=== PATIENT | female | born 1990 | race Hispanic/Latino ===

== ENCOUNTER 2016-12-20 20:47 | Inpatient (IN) | payer MEDICAID ==
[2016-12-20] MEDS ORDERED: CERVIDIL VG ONE (21:57)
[2016-12-20] MEDS ORDERED: BRETHINE IVP PRN (21:57)
[2016-12-20] MEDS ORDERED: NARCAN 0.4 MG/1 ML IV PRN (21:57)
[2016-12-20] MEDS ORDERED: MINERAL OIL PO PRN (21:57)
[2016-12-20] MEDS ORDERED: STADOL IV PRN (21:57)
[2016-12-20] MEDS ORDERED: XYLOCAINE 2% INFILTRATI ONE (21:57)
[2016-12-20] MEDS ORDERED: ePHEDrine SULFATE IV PRN (21:57)
[2016-12-20] MEDS ORDERED: PHENERGAN PO PRN (21:57)
[2016-12-20] MEDS ORDERED: ZOFRAN IV PRN (21:57)
[2016-12-20] MEDS ORDERED: BRETHINE SUB-Q PRN (21:57)
[2016-12-20] MEDS ORDERED: PITOCin/NS 20 UNIT/1000ML DRIP 20 UNITS/1,000 ML BAG IV SCH (22:00)
--- NOTE | 2016-12-20 22:11 | History and Physical Report ---
History of Present Illness Date of examination: 12/20/16 Date of admission: 12/20/16 20:47 Chief complaint: Induction of labor for postdates History of present illness: 26 yo at 41 wk + 2d by established EDC of 12/11/2016. EFW was 8#2oz 3693 gm on 12/13/2016. Known GBS neg, MBT: A pos, Rubella Immune, last Hct was 31. Admitted for cervical ripening and then induction of labor. 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, chlamydia, gonorrhea Social history: no significant social history - Obstetrical History Expected Date of Delivery: 12/11/16 Actual Gestation: 41 Week(s) 2 Day(s) : 3 Para: 0 Spontaneous Abortions: 2 Medications and Allergies Allergies Allergy/AdvReac Type Severity Reaction Status Date / Time No Known Allergies Allergy Unverified 11/26/16 17:28 Active Meds: Active Medications Butorphanol Tartrate (Stadol) 2 mg IV Q2H PRN PRN Reason: Pain , Severe (7-10) Dinoprostone (Cervidil) 10 mg VG ONCE ONE Stop: 12/20/16 21:58 Ephedrine Sulfate (Ephedrine Sulfate) 10 mg IV Q2M PRN PRN Reason: Hypotension Stop: 12/20/16 22:02 Lactated Ringer's (Lactated Ringers) 1,000 mls @ 125 mls/hr IV DIRECT JUSTICE Oxytocin/Sodium Chloride (Pitocin/Ns 20 Unit/1000ml Drip) 20 units in 1,000 mls @ 125 mls/hr IV DIRECT JUSTICE Lidocaine (Xylocaine 2%) 20 ml INFILTRATI ONCE ONE Stop: 12/20/16 21:58 Mineral Oil (Mineral Oil) 30 ml PO QHS PRN PRN Reason: Constipation Naloxone HCl (Narcan 0.4 Mg/1 Ml) 0.1 mg IV Q2MIN PRN PRN Reason: Res Rate </= 8 or 02 SAT < 92% Ondansetron HCl (Zofran) 4 mg IV Q8H PRN PRN Reason: Nausea And Vomiting Promethazine HCl (Phenergan) 25 mg PO Q6H PRN PRN Reason: Nausea And Vomiting Terbutaline Sulfate (Brethine) 0.25 mg SUB-Q ONCE PRN PRN Reason: Hyperstimulation/Hypertonicity Stop: 12/20/16 21:58 Terbutaline Sulfate (Brethine) 0.25 mg IVP ONCE PRN PRN Reason: Hyperstimulation/Hypertonicity Stop: 12/20/16 21:58 Review of Systems All systems: negative - Vital Signs Vital signs: Vital Signs Pulse Pulse Ox 50 L 94 12/20/16 21:28 12/20/16 21:28 Temp Pulse Resp BP Pulse Ox 98.7 F 75 18 124/76 97 12/20/16 21:40 12/20/16 22:03 12/20/16 21:40 12/20/16 21:42 12/20/16 22:03 - Physical Exam Breasts: Positive: normal Cardiovascular: Regular rate Lungs: Positive: Clear to auscultation Abdomen: Positive: normal appearance, soft Genitourinary (Female): Positive: normal external genitalia, normal perenium Vulva: both: normal Vagina: Positive: normal moisture Cervix: Negative: lesion Uterus: Positive: enlarged Adnexa: both: normal Anus/Rectum: Positive: normal perianal skin Extremities: Positive: normal Deep Tendon Reflex Grade: Normal +2 - Obstetrical FHR: auscultation normal Cervical Dilatation: 1 Cervical Effacement Percentage: 50 station: -2 Uterine Contraction Frequency (min): 0 Uterine Contraction Pattern: Absent Results All other labs normal. Assessment and Plan - Patient Problems (1) Post-dates Onset Date: ~12/20/16 Current Visit: Yes Status: Acute Qualifiers: Post-term type: 40-42 weeks gestation Qualified Code(s): O48.0 - Post-term Plan to address problem: Induction of labor after cervical ripening
[2016-12-20 22:40] LABS: Hematocrit 30.1 % (30.3-42.9); Mean Corpuscular HGB Conc 33 % (30-34); Mean Corpuscular Hemoglobin 29 pg (28-32); Mean Corpuscular Volume 87 fl (79-97); Platelet Count 227 K/mm3 (140-440); Red Blood Count 3.45 M/mm3 (3.65-5.03); Red Cell Distribution Width 13.1 % (13.2-15.2); White Blood Count 12.5 K/mm3 (4.5-11.0)
[2016-12-20] MEDS: LACTATED RINGERS 1,000 ML IV SCH (23:04)
[2016-12-20] MEDS ORDERED: AMBIEN PO PRN (23:21)
[2016-12-21] MEDS: LACTATED RINGERS 1,000 ML IV SCH (05:26)
[2016-12-21] MEDS ORDERED: ePHEDrine SULFATE ONE (05:28)
--- NOTE | 2016-12-21 06:12 | Anesthesia Consultation ---
Anesthesia Consult and Med Hx Date of service: 12/21/16 - Airway Anesthetic Teeth Evaluation: Good ROM Head & Neck: Adequate Mental/Hyoid Distance: Adequate Mallampati Class: Class II Intubation Access Assessment: Probably Good - Pulmonary Exam CTA: Yes - Cardiac Exam Cardiac Exam: RRR - Pre-Operative Health Status ASA Pre-Surgery Classification: ASA2 Proposed Anesthetic Plan: Epidural, Spinal - Pulmonary Hx Asthma: No COPD: No Hx Pneumonia: No - Cardiovascular System Hx Hypertension: No - Central Nervous System Hx Seizures: No Hx Psychiatric Problems: No - Endocrine Hx Renal Disease: No Hx End Stage Renal Disease: No Hx Hypothyroidism: No Hx Hyperthyroidism: No - Hematic Hx Anemia: No Hx Sickle Cell Disease: No - Other Systems Hx Alcohol Use: No Hx Obesity: Yes - Additional Comments Anesthesia Medical History Comments: +
[2016-12-21] MEDS ORDERED: ePHEDrine SULFATE IV PRN (06:13)
--- NOTE | 2016-12-21 06:49 | Progress Note ---
<MONIKA DANIELSON - Last Filed: 12/21/16 06:45> Assessment and Plan Called urgently to see pt due to prolong decel and rapid dilatation. On my arrival pt is s/p epidural and very comfortable. SVE 9,100,0 SROM clear fluid, ISE applied. FHR flat, early decels, 120-130. Pt had been given Stadol just prior to epidural and was given Ephedrine after epidural, for hypotension O2 via face mask. Dr Alvarez aware and enroute. Subjective - Subjective Date of service: 12/21/16 (comfortable w/epidural) Patient reports: movement normal Objective - Vital Signs Vital Signs: Vital Signs - 12hr 12/20/16 12/20/16 12/20/16 21:28 21:33 21:38 Temperature Pulse Rate 69 79 72 Pulse Rate [ Left From Monitor] Respiratory Rate Blood Pressure Blood Pressure [Left Arm] O2 Sat by Pulse 95 96 97 Oximetry 12/20/16 12/20/16 12/20/16 21:40 21:42 21:43 Temperature 98.7 F Pulse Rate 70 81 Pulse Rate [ 79 Left From Monitor] Respiratory 18 Rate Blood Pressure 124/76 Blood Pressure 124/76 [Left Arm] O2 Sat by Pulse 95 97 Oximetry 12/20/16 12/20/16 12/20/16 21:48 21:53 21:58 Temperature Pulse Rate 71 75 76 Pulse Rate [ Left From Monitor] Respiratory Rate Blood Pressure Blood Pressure [Left Arm] O2 Sat by Pulse 98 98 97 Oximetry 12/20/16 12/20/16 12/20/16 22:03 22:08 22:13 Temperature Pulse Rate 75 73 77 Pulse Rate [ Left From Monitor] Respiratory Rate Blood Pressure Blood Pressure [Left Arm] O2 Sat by Pulse 97 96 95 Oximetry 12/20/16 12/20/16 12/20/16 22:18 22:23 22:28 Temperature Pulse Rate 77 66 75 Pulse Rate [ Left From Monitor] Respiratory Rate Blood Pressure Blood Pressure [Left Arm] O2 Sat by Pulse 98 97 97 Oximetry 12/20/16 12/20/16 12/20/16 22:33 22:38 22:43 Temperature Pulse Rate 74 69 73 Pulse Rate [ Left From Monitor] Respiratory Rate Blood Pressure Blood Pressure [Left Arm] O2 Sat by Pulse 96 97 97 Oximetry 12/20/16 12/20/16 12/20/16 22:54 22:56 22:59 Temperature Pulse Rate 68 65 62 Pulse Rate [ Left From Monitor] Respiratory Rate Blood Pressure 152/78 Blood Pressure [Left Arm] O2 Sat by Pulse 96 97 Oximetry 12/20/16 12/20/16 12/20/16 23:04 23:09 23:24 Temperature Pulse Rate 66 82 69 Pulse Rate [ Left From Monitor] Respiratory Rate Blood Pressure Blood Pressure [Left Arm] O2 Sat by Pulse 97 97 95 Oximetry 12/20/16 12/20/16 12/20/16 23:25 23:29 23:34 Temperature Pulse Rate 68 65 73 Pulse Rate [ Left From Monitor] Respiratory Rate Blood Pressure 139/66 Blood Pressure [Left Arm] O2 Sat by Pulse 97 98 Oximetry 12/20/16 12/20/16 12/21/16 23:39 23:44 01:46 Temperature Pulse Rate 82 61 Pulse Rate [ Left From Monitor] Respiratory 18 Rate Blood Pressure Blood Pressure [Left Arm] O2 Sat by Pulse 98 98 Oximetry 12/21/16 12/21/16 12/21/16 02:46 02:51 02:56 Temperature Pulse Rate 90 73 74 Pulse Rate [ Left From Monitor] Respiratory Rate Blood Pressure Blood Pressure [Left Arm] O2 Sat by Pulse 94 93 93 Oximetry 12/21/16 12/21/16 12/21/16 03:00 03:01 03:06 Temperature Pulse Rate 99 H 97 H 106 H Pulse Rate [ Left From Monitor] Respiratory Rate Blood Pressure Blood Pressure [Left Arm] O2 Sat by Pulse 94 93 95 Oximetry 12/21/16 12/21/16 12/21/16 03:07 03:11 03:14 Temperature Pulse Rate 101 H 70 83 Pulse Rate [ Left From Monitor] Respiratory Rate Blood Pressure Blood Pressure [Left Arm] O2 Sat by Pulse 94 94 93 Oximetry 12/21/16 12/21/16 12/21/16 03:16 03:19 03:21 Temperature Pulse Rate 66 83 75 Pulse Rate [ Left From Monitor] Respiratory Rate Blood Pressure Blood Pressure [Left Arm] O2 Sat by Pulse 93 94 93 Oximetry 12/21/16 12/21/16 12/21/16 03:26 03:31 05:10 Temperature Pulse Rate 69 102 H 53 L Pulse Rate [ Left From Monitor] Respiratory Rate Blood Pressure Blood Pressure [Left Arm] O2 Sat by Pulse 96 97 95 Oximetry 12/21/16 12/21/16 12/21/16 05:11 05:15 05:16 Temperature Pulse Rate 57 L 78 68 Pulse Rate [ Left From Monitor] Respiratory Rate Blood Pressure Blood Pressure [Left Arm] O2 Sat by Pulse 94 98 94 Oximetry 12/21/16 12/21/16 12/21/16 05:45 05:50 05:51 Temperature Pulse Rate 96 H 68 63 Pulse Rate [ Left From Monitor] Respiratory Rate Blood Pressure 132/70 124/63 Blood Pressure [Left Arm] O2 Sat by Pulse 98 98 Oximetry 12/21/16 12/21/16 12/21/16 05:52 05:55 05:57 Temperature Pulse Rate 82 81 61 Pulse Rate [ Left From Monitor] Respiratory Rate Blood Pressure 124/64 135/63 119/64 Blood Pressure [Left Arm] O2 Sat by Pulse 96 Oximetry 12/21/16 12/21/16 12/21/16 05:59 06:00 06:01 Temperature Pulse Rate 60 68 71 Pulse Rate [ Left From Monitor] Respiratory Rate Blood Pressure 125/68 112/54 Blood Pressure [Left Arm] O2 Sat by Pulse 96 Oximetry 12/21/16 12/21/16 12/21/16 06:05 06:06 06:07 Temperature Pulse Rate 85 69 66 Pulse Rate [ Left From Monitor] Respiratory Rate Blood Pressure 104/50 Blood Pressure [Left Arm] O2 Sat by Pulse 98 90 Oximetry 12/21/16 12/21/16 12/21/16 06:09 06:10 06:11 Temperature Pulse Rate 67 67 65 Pulse Rate [ Left From Monitor] Respiratory Rate Blood Pressure 101/53 89/52 Blood Pressure [Left Arm] O2 Sat by Pulse 98 Oximetry 12/21/16 12/21/16 12/21/16 06:12 06:15 06:17 Temperature Pulse Rate 85 69 71 Pulse Rate [ Left From Monitor] Respiratory Rate Blood Pressure 98/54 104/53 95/53 Blood Pressure [Left Arm] O2 Sat by Pulse 94 Oximetry 12/21/16 12/21/16 12/21/16 06:20 06:21 06:22 Temperature Pulse Rate 68 72 71 Pulse Rate [ Left From Monitor] Respiratory Rate Blood Pressure 118/57 113/55 Blood Pressure [Left Arm] O2 Sat by Pulse 100 Oximetry 12/21/16 12/21/16 12/21/16 06:24 06:25 06:26 Temperature Pulse Rate 82 82 86 Pulse Rate [ Left From Monitor] Respiratory Rate Blood Pressure 116/58 112/55 Blood Pressure [Left Arm] O2 Sat by Pulse 98 Oximetry 12/21/16 12/21/16 12/21/16 06:30 06:35 06:37 Temperature Pulse Rate 94 H 78 75 Pulse Rate [ Left From Monitor] Respiratory Rate Blood Pressure 114/58 Blood Pressure [Left Arm] O2 Sat by Pulse 100 100 Oximetry 12/21/16 06:40 Temperature Pulse Rate 75 Pulse Rate [ Left From Monitor] Respiratory Rate Blood Pressure Blood Pressure [Left Arm] O2 Sat by Pulse 100 Oximetry - Exam Breasts: deferred Cardiovascular: Regular rate Lungs: Normal air movement Abdomen: Present: normal appearance, soft. Absent: distention, tenderness Vulva: both: normal Uterus: Present: normal FHR: auscultation normal Uterine Contraction Monitor Mode: External Cervical Dilatation: 9 Cervical Effacement Percentage: 100 station: 0 Uterine Contraction Pattern: Irregular Uterine Contraction Intensity: Moderate Extremities: edema Deep Tendon Reflex Grade: Normal +2 - Labs Labs: Abnormal Labs 12/20/16 22:20 WBC 12.5 H RBC 3.45 L Hgb 10.0 L Hct 30.1 L RDW 13.1 L Laboratory Results - last 24 hr 12/20/16 12/20/16 22:20 22:20 WBC 12.5 H RBC 3.45 L Hgb 10.0 L Hct 30.1 L MCV 87 MCH 29 MCHC 33 RDW 13.1 L Plt Count 227 Blood Type A POSITIVE Antibody Screen Negative <KEYONNA ALVAREZ - Last Filed: 12/21/16 07:21> Assessment and Plan - Patient Problems (1) Post-dates Onset Date: ~12/20/16 Current Visit: Yes Status: Acute Qualifiers: Post-term type: 40-42 weeks gestation Qualified Code(s): O48.0 - Post-term Subjective - Subjective Principal diagnosis: post dates , induction of labor Interval history: Tracing currently very flat due to, I think, previous hypotensive episode and Ambien/Stadol prior to epidural. Has recently made rapid progress after only cervidil. One recent shallow deceleration after a contraction. Will watch closely--sign off given to Dr Guy. Exam by Ms Smith shows 9 cm with contraction and 7 cm without contraction. Objective - Vital Signs Vital Signs: Vital Signs - 12hr 12/20/16 12/20/16 12/20/16 21:28 21:33 21:38 Temperature Pulse Rate 69 79 72 Pulse Rate [ Left From Monitor] Respiratory Rate Blood Pressure Blood Pressure [Left Arm] O2 Sat by Pulse 95 96 97 Oximetry 12/20/16 12/20/16 12/20/16 21:40 21:42 21:43 Temperature 98.7 F Pulse Rate 70 81 Pulse Rate [ 79 Left From Monitor] Respiratory 18 Rate Blood Pressure 124/76 Blood Pressure 124/76 [Left Arm] O2 Sat by Pulse 95 97 Oximetry 12/20/16 12/20/16 12/20/16 21:48 21:53 21:58 Temperature Pulse Rate 71 75 76 Pulse Rate [ Left From Monitor] Respiratory Rate Blood Pressure Blood Pressure [Left Arm] O2 Sat by Pulse 98 98 97 Oximetry 12/20/16 12/20/16 12/20/16 22:03 22:08 22:13 Temperature Pulse Rate 75 73 77 Pulse Rate [ Left From Monitor] Respiratory Rate Blood Pressure Blood Pressure [Left Arm] O2 Sat by Pulse 97 96 95 Oximetry 12/20/16 12/20/16 12/20/16 22:18 22:23 22:28 Temperature Pulse Rate 77 66 75 Pulse Rate [ Left From Monitor] Respiratory Rate Blood Pressure Blood Pressure [Left Arm] O2 Sat by Pulse 98 97 97 Oximetry 12/20/16 12/20/16 12/20/16 22:33 22:38 22:43 Temperature Pulse Rate 74 69 73 Pulse Rate [ Left From Monitor] Respiratory Rate Blood Pressure Blood Pressure [Left Arm] O2 Sat by Pulse 96 97 97 Oximetry 12/20/16 12/20/16 12/20/16 22:54 22:56 22:59 Temperature Pulse Rate 68 65 62 Pulse Rate [ Left From Monitor] Respiratory Rate Blood Pressure 152/78 Blood Pressure [Left Arm] O2 Sat by Pulse 96 97 Oximetry 12/20/16 12/20/16 12/20/16 23:04 23:09 23:24 Temperature Pulse Rate 66 82 69 Pulse Rate [ Left From Monitor] Respiratory Rate Blood Pressure Blood Pressure [Left Arm] O2 Sat by Pulse 97 97 95 Oximetry 03/13/17 03/13/17 03/13/17 23:25 23:29 23:34 Temperature Pulse Rate 68 65 73 Pulse Rate [ Left From Monitor] Respiratory Rate Blood Pressure 139/66 Blood Pressure [Left Arm] O2 Sat by Pulse 97 98 Oximetry 12/20/16 12/20/16 12/21/16 23:39 23:44 01:46 Temperature Pulse Rate 82 61 Pulse Rate [ Left From Monitor] Respiratory 18 Rate Blood Pressure Blood Pressure [Left Arm] O2 Sat by Pulse 98 98 Oximetry 12/21/16 12/21/16 12/21/16 02:46 02:51 02:56 Temperature Pulse Rate 90 73 74 Pulse Rate [ Left From Monitor] Respiratory Rate Blood Pressure Blood Pressure [Left Arm] O2 Sat by Pulse 94 93 93 Oximetry 12/21/16 12/21/16 12/21/16 03:00 03:01 03:06 Temperature Pulse Rate 99 H 97 H 106 H Pulse Rate [ Left From Monitor] Respiratory Rate Blood Pressure Blood Pressure [Left Arm] O2 Sat by Pulse 94 93 95 Oximetry 12/21/16 12/21/16 12/21/16 03:07 03:11 03:14 Temperature Pulse Rate 101 H 70 83 Pulse Rate [ Left From Monitor] Respiratory Rate Blood Pressure Blood Pressure [Left Arm] O2 Sat by Pulse 94 94 93 Oximetry 12/21/16 12/21/16 12/21/16 03:16 03:19 03:21 Temperature Pulse Rate 66 83 75 Pulse Rate [ Left From Monitor] Respiratory Rate Blood Pressure Blood Pressure [Left Arm] O2 Sat by Pulse 93 94 93 Oximetry 12/21/16 12/21/16 12/21/16 03:26 03:31 05:10 Temperature Pulse Rate 69 102 H 53 L Pulse Rate [ Left From Monitor] Respiratory Rate Blood Pressure Blood Pressure [Left Arm] O2 Sat by Pulse 96 97 95 Oximetry 12/21/16 12/21/16 12/21/16 05:11 05:15 05:16 Temperature Pulse Rate 57 L 78 68 Pulse Rate [ Left From Monitor] Respiratory Rate Blood Pressure Blood Pressure [Left Arm] O2 Sat by Pulse 94 98 94 Oximetry 12/21/16 12/21/16 12/21/16 05:45 05:50 05:51 Temperature Pulse Rate 96 H 68 63 Pulse Rate [ Left From Monitor] Respiratory Rate Blood Pressure 132/70 124/63 Blood Pressure [Left Arm] O2 Sat by Pulse 98 98 Oximetry 12/21/16 12/21/16 12/21/16 05:52 05:55 05:57 Temperature Pulse Rate 82 81 61 Pulse Rate [ Left From Monitor] Respiratory Rate Blood Pressure 124/64 135/63 119/64 Blood Pressure [Left Arm] O2 Sat by Pulse 96 Oximetry 12/21/16 12/21/16 12/21/16 05:59 06:00 06:01 Temperature Pulse Rate 60 68 71 Pulse Rate [ Left From Monitor] Respiratory Rate Blood Pressure 125/68 112/54 Blood Pressure [Left Arm] O2 Sat by Pulse 96 Oximetry 12/21/16 12/21/16 12/21/16 06:05 06:06 06:07 Temperature Pulse Rate 85 69 66 Pulse Rate [ Left From Monitor] Respiratory Rate Blood Pressure 104/50 Blood Pressure [Left Arm] O2 Sat by Pulse 98 90 Oximetry 12/21/16 12/21/16 12/21/16 06:09 06:10 06:11 Temperature Pulse Rate 67 67 65 Pulse Rate [ Left From Monitor] Respiratory Rate Blood Pressure 101/53 89/52 Blood Pressure [Left Arm] O2 Sat by Pulse 98 Oximetry 12/21/16 12/21/16 12/21/16 06:12 06:15 06:17 Temperature Pulse Rate 85 69 71 Pulse Rate [ Left From Monitor] Respiratory Rate Blood Pressure 98/54 104/53 95/53 Blood Pressure [Left Arm] O2 Sat by Pulse 94 Oximetry 12/21/16 12/21/16 12/21/16 06:20 06:21 06:22 Temperature Pulse Rate 68 72 71 Pulse Rate [ Left From Monitor] Respiratory Rate Blood Pressure 118/57 113/55 Blood Pressure [Left Arm] O2 Sat by Pulse 100 Oximetry 12/21/16 12/21/16 12/21/16 06:24 06:25 06:26 Temperature Pulse Rate 82 82 86 Pulse Rate [ Left From Monitor] Respiratory Rate Blood Pressure 116/58 112/55 Blood Pressure [Left Arm] O2 Sat by Pulse 98 Oximetry 12/21/16 12/21/16 12/21/16 06:30 06:35 06:37 Temperature Pulse Rate 94 H 78 75 Pulse Rate [ Left From Monitor] Respiratory Rate Blood Pressure 114/58 Blood Pressure [Left Arm] O2 Sat by Pulse 100 100 Oximetry 12/21/16 12/21/16 12/21/16 06:40 06:45 06:50 Temperature Pulse Rate 75 74 82 Pulse Rate [ Left From Monitor] Respiratory Rate Blood Pressure Blood Pressure [Left Arm] O2 Sat by Pulse 100 100 100 Oximetry 12/21/16 12/21/16 12/21/16 06:55 07:00 07:05 Temperature Pulse Rate 83 69 70 Pulse Rate [ Left From Monitor] Respiratory Rate Blood Pressure 121/58 Blood Pressure [Left Arm] O2 Sat by Pulse 100 100 100 Oximetry 12/21/16 07:10 Temperature Pulse Rate 72 Pulse Rate [ Left From Monitor] Respiratory Rate Blood Pressure Blood Pressure [Left Arm] O2 Sat by Pulse 100 Oximetry - Labs Labs: Abnormal Labs 12/20/16 22:20 WBC 12.5 H RBC 3.45 L Hgb 10.0 L Hct 30.1 L RDW 13.1 L Laboratory Results - last 24 hr 12/20/16 12/20/16 22:20 22:20 WBC 12.5 H RBC 3.45 L Hgb 10.0 L Hct 30.1 L MCV 87 MCH 29 MCHC 33 RDW 13.1 L Plt Count 227 Blood Type A POSITIVE Antibody Screen Negative
[2016-12-21] MEDS ORDERED: fentaNYL-BUPIV 2 MCG/ML-0.125% 200 MCG/100 ML BAG EPIDURAL SCH (07:00)
[2016-12-21] MEDS ORDERED: PITOCin/NS 30 UNIT/500ML 30,000 MILLIUNITS/500 ML BAG IV ONE (07:17)
--- NOTE | 2016-12-21 07:27 | Event Note ---
Date: 12/21/16 Tracing currently very flat due to, I think, previous hypotensive episode and Ambien/Stadol prior to epidural. Has recently made rapid progress after only cervidil. One recent shallow deceleration after a contraction. Will watch closely--sign off given to Dr Guy. Exam by Luis shows 9 cm with contraction and 7 cm without contraction.
[2016-12-21] MEDS ORDERED: PITOCin/NS 30 UNIT/500ML 30 UNITS/500 ML BAG IV SCH (07:30)
--- NOTE | 2016-12-21 08:49 | Procedure Note ---
OB Delivery Note - Delivery Date of Delivery: 12/21/16 ( Male) Director Of Strategic Programs: AUBRIE CANDELARIO Estimated blood loss: 300cc - Vaginal Delivery presentation: vertex Delivery position: OA (ALICE) Intrapartum events: mult. late decelerations (near delivery) Delivery induction: cervidil Delivery augmentation: rupture of membranes, pitocin Delivery monitor: external uterine, internal FHT Route of delivery: Delivery placenta: spontaneous Delivery cord: 3 umbilical vessels Episiotomy: none Delivery laceration: none Anesthesia: epidural Delivery comments: male del over intact perineum, Placed skin to skin on mother's abd. 3 vessel cord clamped and cut. Placenta del intact and complete. Pit to IVF. no laceration to repair - skid kylie on left labial no bleeding. EBL 300, apgars 8/9 , wt 8#1. Mother and remain LDR stable. - Infant A at 1 minute: 8 at 5 minutes: 9 Gender: Male (8#1oz)
[2016-12-21] MEDS ORDERED: SODIUM CHLORIDE FLUSH SYRINGE 10 ML IV SCH (14:41)
[2016-12-21] MEDS ORDERED: BENADRYL PO PRN (14:41)
[2016-12-21] MEDS ORDERED: PRENATAL VITAMIN PO SCH (14:41)
[2016-12-21] MEDS ORDERED: DULCOLAX PR PRN (14:41)
[2016-12-21] MEDS ORDERED: TUCKS PAD TP PRN (14:41)
[2016-12-21] MEDS ORDERED: DERMOPLAST TP PRN (14:41)
[2016-12-21] MEDS ORDERED: TYLENOL PO PRN (14:41)
[2016-12-21] MEDS ORDERED: MILK OF MAGNESIA PO PRN (14:41)
[2016-12-21] MEDS ORDERED: LANSINOH TP PRN (14:41)
[2016-12-21] MEDS: NORCO 5/325 PO PRN ×2 (15:41→22:18)
[2016-12-21] MEDS ORDERED: PITOCin/NS 20 UNIT/1000ML DRIP 20 UNITS/1,000 ML BAG IV SCH (16:00)
[2016-12-21] MEDS: MOTRIN PO SCH ×2 (18:10→23:56)
[2016-12-21 21:07] LABS: Hematocrit 29.6 % (30.3-42.9); Hemoglobin 9.9 gm/dl (10.1-14.3)
[2016-12-21] MEDS: COLACE PO SCH (22:18)
[2016-12-21] MEDS: FEOSOL PO SCH (22:18)
[2016-12-22] MEDS: MOTRIN PO SCH ×2 (05:13→11:05)
[2016-12-22] MEDS ORDERED: BOOSTRIX IM ONE (06:00)
--- NOTE | 2016-12-22 07:54 | Progress Note ---
Assessment and Plan patient doing well this morning, no complaints. desires d/c home today. feels comfortable with care. Lochia scant, VSSAF, H&H stable with only slight drop to 9.9/29.6, asymptomatic for anemia. Plan for f/u in office for visit and infant circ. - Patient Problems (1) (normal spontaneous vaginal delivery) Current Visit: Yes Status: Acute Subjective - Subjective Date of service: 12/22/16 Principal diagnosis: day #1 s/p Patient reports: appetite normal, voiding normally, pain well controlled, flatus , ambulating normally, no dizzy ambulation, no bowel movement, no nauseated : doing well, bottle feeding (breast and bottle feeding) Objective - Vital Signs Latest vital signs: Vital Signs Temp Pulse Pulse Resp BP BP Pulse Ox 12/22/16 01:18 98.4 F 66 18 133/71 12/21/16 22:18 18 12/21/16 20:05 98.1 F 79 18 138/70 12/21/16 16:15 98.3 F 80 18 136/66 12/21/16 15:41 20 12/21/16 12:20 98.6 F 76 16 122/64 12/21/16 12:00 98.6 F 12/21/16 10:59 81 122/59 12/21/16 10:29 80 113/57 12/21/16 10:00 73 97 12/21/16 09:59 75 130/75 12/21/16 09:58 75 94 12/21/16 09:55 78 97 12/21/16 09:50 74 95 12/21/16 09:46 74 131/74 12/21/16 09:45 75 98 12/21/16 09:40 77 96 12/21/16 09:35 87 95 12/21/16 09:30 80 95 12/21/16 09:25 82 97 12/21/16 09:10 80 97 12/21/16 09:05 85 96 12/21/16 09:00 85 97 12/21/16 08:59 85 114/61 12/21/16 08:55 93 H 97 12/21/16 08:50 98.1 F 83 18 98 12/21/16 08:30 127 H 127/60 12/21/16 08:15 93 H 97 12/21/16 08:10 67 99 12/21/16 08:05 65 99 12/21/16 08:00 65 99 12/21/16 07:59 67 116/57 12/21/16 07:55 65 99 Intake and Output 12/21/16 12/22/16 12/22/16 22:59 06:59 14:59 Intake Total 890 240 Output Total 900 Balance 890 -660 Intake: IV 250 PITOCin/NS 20 UNIT/1000ML 250 DRIP 20 units In 1,000 ml @ 125 mls/hr IV DIRECT JUSTICE Rx#:[id number] Oral 640 240 Output: Urine 900 Void 900 Other: Total, Intake Amount 640 240 Total, Output Amount 900 # Voids Void 1 - Exam Breasts: Present: normal Cardiovascular: Present: Regular rate Lungs: Present: Clear to auscultation, Normal air movement Abdomen: Present: normal appearance, soft, normal bowel sounds Vulva: both: normal Uterus: Present: normal, firm, fundal height at umbilicus Extremities: Present: normal - Labs Labs: Abnormal lab results 12/21/16 Range/Units 20:31 Hgb 9.9 L (10.1-14.3) gm/dl Hct 29.6 L (30.3-42.9) %
--- NOTE | 2016-12-22 07:57 | Discharge Summary ---
Providers - Providers Date of Admission: 12/20/16 20:47 Date of discharge: 12/22/16 (desires d/c home today) Attending physician: KEYONNA ALVAREZ 12/21/16 14:41 Consult to Machine Tool Operator [CONS] Routine Reason For Exam: assistance with , SNS Primary care physician: KEYONNA ALVAREZ Hospitalization Reason for admission: induction of labor (post dates) Delivery: Episiotomy: none Laceration: none Other procedures: none complications: none Discharge diagnosis: IUP at term delivered baby: male Hospital course: uncomplicated vaginal delivery Condition at discharge: Good Disposition: DISCHARGED TO HOME OR SELFCARE - Discharge Diagnoses (1) (normal spontaneous vaginal delivery) Status: Acute Plan - Discharge Medications Prescriptions: Ferrous Sulfate [Feosol 325 MG tab] 325 mg PO TID #90 tablet Ibuprofen [Motrin 800 MG tab] 800 mg PO Q8HR PRN #30 tablet PRN Reason: Pain Lidocain2.5%/Prilocai2.5% [Emla] 5 gm TP ONCE PRN #1 tube PRN Reason: Pain - Provider Discharge Summary Activity: routine, no sex for 6 weeks, no heavy lifting 4 weeks, no strenuous exercise Diet: routine Instructions: routine Additional instructions: [] Smoking cessation referral if applicable(refer to patient education folder for contact #) [] Refer to [facility]'s [facility] Booklet Call your doctor immediately for: * Fever > 100.5 * Heavy vaginal bleeding ( >1 pad per hour) * Severe persistent headache * Shortness of breath * Reddened, hot, painful area to leg or breast * Drainage or odor from incision. * Keep incision clean and dry at all times and follow doctor's instructions regarding bathing/showering - Follow up plan Follow up: KEYONNA ALVAREZ MD [Primary Care Provider] - 7 Days (Congratulations!! Please call [phone] to schedule your son's circumcision in 1 week and your visit in 4 weeks. Bring EMLA cream to your son's appointment and await further instructions. Call for any questions or concerns. )
[2016-12-22] MEDS: FEOSOL PO SCH (11:05)
[2016-12-22] MEDS: COLACE PO SCH (11:06)
[2016-12-22] MEDS ORDERED: FLUARIX QUAD 2016-2017(36 MOS+) IM ONE (12:00)
[2016-12-22 17:38] VITALS: BP 120/66
== END 2016-12-22 15:45 | disposition home or self-care (01) | DRG 775 ==
LOC: LD 20:47 → OB 12-21 12:31
PROVIDERS: ADMIT Obstetrics & Gynecology; ATTEND Obstetrics & Gynecology
PROC: 10E0XZZ Delivery of Products of Conception, External Approach (ICD-10-PCS; principal; 2016-12-21)
PROC: 3E0P7GC Introduction of Other Therapeutic Substance into Female Reproductive, Via Natural or Artificial Opening (ICD-10-PCS; 2016-12-21)
PROC: 00HU33Z Insertion of Infusion Device into Spinal Canal, Percutaneous Approach (ICD-10-PCS; 2016-12-21)
PROC: 3E0R3CZ (ICD-10-PCS; 2016-12-21)
DX: O48.0 Post-term pregnancy (principal); O99.02 Anemia complicating childbirth; O76 Abnormality in fetal heart rate and rhythm complicating labor and delivery; Z3A.41 41 weeks gestation of pregnancy; Z37.0 Single live birth; Z23 Encounter for immunization
CPT/HCPCS: 36415; 59200; 85014; 85018; 85027; 86850; 86900; 86901; 90686; 99211; G0463; J0595; J2590; J7120

== ENCOUNTER 2020-11-26 10:00 | Emergency (ER) | payer MEDICAID ==
--- NOTE | 2020-11-26 10:23 | Event Note ---
ED Screening Note Date of service: 11/26/20 Time: 10:19 ED Screening Note: 30-year-old female presents stating she thinks she has a tampon in her vagina. This initial assessment/diagnostic orders/clinical plan/treatment(s) is/are subject to change based on patients health status, clinical progression and re- assessment by fellow clinical providers in the ED. Further treatment and workup at subsequent clinical providers discretion. Patient/guardian urged not to elope from the ED as their condition may be serious if not clinically assessed and managed. Initial orders include: ua
[2020-11-26 10:28] VITALS: BP 125/70
--- NOTE | 2020-11-26 10:32 | Emergency Department Report ---
ED Female HPI - General Chief complaint: Urogenital-Female Stated complaint: VAGINAL ISSUE/PERSONAL Time Seen by Provider: 11/26/20 10:31 Source: patient Mode of arrival: Ambulatory Limitations: No Limitations - History of Present Illness Initial comments: This 30-year-old female with no prior medical history who presents the ED stating that she thinks she forgot a tampon in her vagina which she had placed on Tuesday. Patient states that she just ended her cycle which began of last week. Patient states that she thought she had put in a tampon and then [place] the [place] and states that she forgot and has been unable to get it out. Patient states no other symptoms. Patient denies fever/chills/pelvic pain/dysuria/vaginal discharge or any other symptoms Are you Now?: No - Related Data Home Medications Medication Instructions Recorded Confirmed Last Taken Vit-Fe Fumar-FA [ 1 tab PO QDAY 12/21/16 12/21/16 11/09/16 Vitamin] Previous Rx's Medication Instructions Recorded Last Taken Type Ferrous Sulfate [Feosol 325 MG tab] 325 mg PO TID #90 tablet 12/21/16 Unknown Rx Ibuprofen [Motrin 800 MG tab] 800 mg PO Q8HR PRN #30 tablet 12/21/16 Unknown Rx Lidocain2.5%/Prilocai2.5% [Emla] 5 gm TP ONCE PRN #1 tube 12/21/16 Unknown Rx Allergies Allergy/AdvReac Type Severity Reaction Status Date / Time No Known Allergies Allergy Unverified 11/26/16 17:28 ED Review of Systems ROS: Stated complaint: VAGINAL ISSUE/PERSONAL Other details as noted in HPI Comment: All other systems reviewed and negative ED Past Medical Hx - Past Medical History Hx Hypertension: No Hx Congestive Heart Failure: No Hx Diabetes: No Hx Deep Vein Thrombosis: No Hx Renal Disease: No Hx Sickle Cell Disease: No Hx Seizures: No Hx Asthma: No Hx COPD: No - Surgical History Past Surgical History?: Yes Additional Surgical History: right kidney - Social History Smoking Status: Never Smoker - Medications Home Medications: Home Medications Medication Instructions Recorded Confirmed Last Taken Type Ferrous Sulfate [Feosol 325 MG tab] 325 mg PO TID #90 tablet 12/21/16 Unknown Rx Ibuprofen [Motrin 800 MG tab] 800 mg PO Q8HR PRN #30 tablet 12/21/16 Unknown Rx Lidocain2.5%/Prilocai2.5% [Emla] 5 gm TP ONCE PRN #1 tube 12/21/16 Unknown Rx Vit-Fe Fumar-FA [ 1 tab PO QDAY 12/21/16 12/21/16 11/09/16 History Vitamin] ED Physical Exam - General Limitations: No Limitations General appearance: alert, in no apparent distress - Head Head exam: Present: atraumatic, normocephalic - Eye Eye exam: Present: normal appearance - ENT ENT exam: Present: mucous membranes moist - Neck Neck exam: Present: normal inspection - Respiratory Respiratory exam: Present: normal lung sounds bilaterally. Absent: respiratory distress - Cardiovascular Cardiovascular Exam: Present: regular rate, normal rhythm. Absent: systolic murmur, diastolic murmur, rubs, gallop - GI/Abdominal GI/Abdominal exam: Present: soft, normal bowel sounds. Absent: distended, tenderness - External exam: Present: normal external exam Speculum exam: Present: normal speculum exam. Absent: vaginal discharge, cervical discharge, foreign body, tissue Bi-manual exam: Present: normal bi-manual exam. Absent: cervical motion tendernes - Extremities Exam Extremities exam: Present: normal inspection - Back Exam Back exam: Present: normal inspection. Absent: full ROM, CVA tenderness (R) - Neurological Exam Neurological exam: Present: alert, oriented X3 - Psychiatric Psychiatric exam: Present: normal affect, normal mood - Skin Skin exam: Present: warm, dry, intact, normal color. Absent: rash ED Course Vital Signs 11/26/20 10:25 Temperature 98.1 F Pulse Rate 63 Respiratory 16 Rate Blood Pressure 125/70 O2 Sat by Pulse 98 Oximetry ED Medical Decision Making - Medical Decision Making 30-year-old female presented with foreign body in the vaginal canal. There was no foreign [id number] tampons or anything in the vagina canal. Discussed follow-up with her primary care doctor. Vital signs normal patient be discharged. Critical care attestation.: If time is entered above; I have spent that time in minutes in the direct care of this critically ill patient, excluding procedure time. ED Disposition Clinical Impression: Vaginal foreign body Disposition: DC- TO HOME OR SELFCARE Is pt being admited?: No Does the pt Need Aspirin: No Condition: Stable Instructions: Vaginal Foreign Body, [id number] Referrals: [facility] [Provider Group] - 3-5 Days Forms: Work/School Release Form(ED) Time of Disposition: 10:52
== END 2020-11-26 11:47 | disposition home or self-care (01) ==
LOC: ED 10:00 → EEVIPCON 10:00 → ED 11:47
DX: T19.2XXA Foreign body in vulva and vagina, initial encounter (principal); Z98.890 Other specified postprocedural states; X58.XXXA Exposure to other specified factors, initial encounter; Y93.89 Activity, other specified; Y92.89 Other specified places as the place of occurrence of the external cause; Y99.8 Other external cause status
CPT/HCPCS: 99281; 99283